=== PATIENT | male | born 1995 | race African-American/Black ===

== ENCOUNTER 2020-07-24 10:00 | Emergency (ER) | payer BC, SELFPAY ==
--- NOTE | ~2020-07-24 | XR_ITS ---
EXAMINATION: XR chest 1V portable DATE: 07/24/2020 11:26 INDICATION: Left flank pain. TECHNIQUE: A single frontal view of the chest was obtained. COMPARISON: None. FINDINGS: The chest demonstrates clear lungs without pneumonia, pleural effusion, or pneumothorax. Th e heart size is normal. IMPRESSION: 1. No acute cardiopulmonary disease. 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
--- NOTE | ~2020-07-24 | CT_ITS ---
EXAMINATION: CT abdomen pelvis wo con DATE: 07/24/2020 12:07 INDICATION: Left flank pain. TECHNIQUE: Computed tomography (CT) of the abdomen and pelvis was performed without intravenous contr ast. Automated exposure control and iterative reconstruction technique were employed. The dose-length product was 340.97 mGy-cm. COMPARISON: None. FINDINGS: The visualized portions of the lung bases are clear without pneumonia or pleural effusion. The heart size is normal. No pericardial effusion. The liver, gallbladder, spleen, pancreas, adrenal glands, and kidneys are normal. There is no urolithiasis. There are no dilated loops of bowel. The ap pendix is normal. There are no pathologically enlarged lymph nodes. There is no free intraperitoneal fluid. There is mild lumbar spondylosis. IMPRESSION: 1. No etiology for the patient's symptoms. 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
[2020-07-24 10:06] VITALS: BP 126/74; PULSE 88; RESP 16; TEMP 36.1; O2SAT 99
[2020-07-24 10:30] VITALS: PULSE 91
--- NOTE | 2020-07-24 10:40 | ED.GENADULT ---
HPI - General Adult General Chief complaint: Unspecified Stated complaint: Diabetic concerns, covid exposure Time Seen by Provider: 07/24/20 10:13 Source: patient Mode of arrival: ambulatory Limitations: no limitations History of Present Illness HPI narrative: This patient is a 25 year old male with history of DM 1 who presents for evaluation of possible COVID. He reports his mother tested positive for COVID 2 weeks ago and she has since tested negative. He has come to the ER for evaluation since he has diabetes. He states he has not had any symptoms . He does complain of an aching pain to his left flank that started 2 days ago. He is not sure if that is due to COVID. He does admit to not taking his insulin for 3 weeks , and he has not been checking his glucose either. His blood sugar was elevated today in triage. He denies nausea, vomiting, fever, cough, sob, polydipsia or polyuria. Related Data Home Medications Medication Instructions Recorded Confirmed insulin needles (disposable) 30 X #1 01/11/20 3/4 Allergies Allergy/AdvReac Type Severity Reaction Status Date / Time No Known Allergies Allergy Verified 07/24/20 10:10 Review of Systems Review of Systems: All systems reviewed & are unremarkable except as noted in HPI and below PMFSH Past Medical History Medical History (Updated 07/24/20 @ 12:43 by Sudha Antonio MD) Type 2 diabetes mellitus with hyperglycemia Family History Family History (Updated 01/09/18 @ 15:07 by DOCTOR UNKNOWN) Mother Patient's mother is in good health Father Patient's father is in good health Sibling Patient's sister is in good health Patient's brother is in good health Social History Social History (Updated 01/12/20 @ 11:25 by Annmarie Tinoco) Smoking status: Never smoker Second hand tobacco smoke exposure: No Alcohol intake: current Substance use: current Substance use type: marijuana Gender identity (if verbalized by the patient): Male Exam Narrative: Exam Narrative: GENERAL: Well-appearing, well-nourished, and in no acute distress. HEAD: Normocephalic, atraumatic EYES: PERRLA and EOMI, conjunctiva clear without discharge THROAT:Mucous membranes moist, Oropharynx normal without erythema, exudate, peritonsillar swelling or fluctuance NECK: Supple, without lymphadenopathy or mass RESPIRATORY: No respiratory distress, Airway patent, Respirations non-labored, Clear to auscultation without rales, rhonchi or wheeze HEART: Regular rate and rhythm. No murmur heard. Normal peripheral pulses. ABDOMEN: Soft, nontender, nondistended, normal active bowel sounds. No masses. No rebound or guarding, No organomegaly. EXTREMITIES: No edema, normal strength with full range of motion. SKIN: Warm, dry, normal color without rash NEURO: Alert and oriented x3. CN 2-12 grossly intact. No focal deficits. PSYCH: Normal mood and affect. Course Reevaluation(s) Reevaluation #1: I Discussed with patient that he needs to check his BS daily and take insulin. He states he just needs to call Dr. Main. I offered to prescribe. I discussed risk of not taking care of his diabetes Date: 07/24/20 Time: 12:38 Vital Signs Vital signs: Vital Signs Temperature 97 F L 07/24/20 10:06 Pulse Rate 88 07/24/20 10:06 Respiratory Rate 16 07/24/20 10:06 Blood Pressure 126/74 07/24/20 10:06 Pulse Oximetry 99 07/24/20 10:06 Temperature 97 F L 07/24/20 10:06 Pulse Rate 80 07/24/20 13:07 Respiratory Rate 15 07/24/20 13:07 Blood Pressure 122/76 07/24/20 13:07 Pulse Oximetry 99 07/24/20 13:07 Medical Decision Making Vital Signs Vital Signs: Vital Signs Temperature 97 F L 07/24/20 10:06 Pulse Rate 88 07/24/20 10:06 Respiratory Rate 16 07/24/20 10:06 Blood Pressure 126/74 07/24/20 10:06 Pulse Oximetry 99 07/24/20 10:06 Temperature 97 F L 07/24/20 10:06 Pulse Rate 80 07/24/20 13:07 Respiratory Rate
[2020-07-24 10:47] LABS: Add Urine Microscopic? YES; Appearance Urine Clear (Clear); Bilirubin Urine Negative (Negative); Blood Urine Negative (Negative); Color Urine Straw (Yellow); Glucose Urine UA 3+ mg/dL (Negative); Ketones Urine Trace mg/dL (Negative); Leukocyte Esterase Ur Trace LEU/UL (Negative); Nitrate Urine Negative (Negative); Protein Urine Negative (Negative); Squamous Epithelial Cell Urine Rare /hpf (Few); Urobilinogen Urine Negative mg/dL (<2.0)
[2020-07-24 10:51] LABS: Basophils Percent Auto 0.1 % (0.2-1.2); Eosinophils Absolute Auto 0.1 K/mm3 (0-0.3); Eosinophils Percent Auto 0.9 % (0-4.4); Hematocrit 47.5 % (42.0-52.0); Hemoglobin 16.5 g/dL (14.0-18.0); Immature Granulocyte Absolute 0.01 K/mm3 (0.00-0.031); Immature Granulocyte Percent A 0.1 % (0-0.5); Lymphocytes Absolute Auto 2.28 K/mm3 (0.9-3.2); Mean Corpuscular HGB Conc 34.7 g/dl (32-36); Mean Corpuscular Hemoglobin 29.4 pg (26-34); Mean Corpuscular Volume 84.5 fl (80-100); Mean Platelet Volume 10.8 fl (7.4-10.4); Monocytes Absolute Auto 0.4 K/mm3 (0.1-0.6); Monocytes Percent Auto 6.1 % (2.6-8.5); Neutrophils Absolute Auto 4.1 K/mm3 (1.3-6.7); Neutrophils Percent Auto 59.8 % (45.5-73.1); Platelet Count Result 263 k/mm3 (150-375); Red Blood Count 5.62 M/mm3 (4.6-6.20); Red Cell Distribution Width 11.8 % (11.5-14.5); White Blood Count 6.9 K/mm3 (4.5-10.0)
[2020-07-24 11:07] LABS: Alanine Aminotransferase 13 U/L (4-50); Albumin Level 4.1 g/dL (3.5-5.1); Alkaline Phosphatase 88 U/L (38-126); Anion Gap 8 mmol/L (8-16); Aspartate Amino Transferase 20 U/L (17-59); Blood Urea Nitrogen 12 mg/dL (9-20); Calcium 9.4 mg/dL (8.4-10.2); Carbon Dioxide 30 mmol/L (22-30); Chloride 97 mmol/L (98-107); Estimated CRCL calculation 169 ml/min; Estimated Glomerular Filt Rate > 60; Glucose 350 mg/dL (75-110); Lipase 72 U/L (23-300); Potassium 4.5 mmol/L (3.4-5.0); Sodium 135 mmol/L (137-145)
[2020-07-24 11:08] LABS: Glucose Point of Care 346 (65-105)
[2020-07-24] MEDS: SODIUM CHLORIDE 0.9% IV 1,000 ML 999 ML IV CONT (11:27)
[2020-07-24 11:29] VITALS: BP 122/56; PULSE 84; RESP 18; O2SAT 99
--- NOTE | 2020-07-24 11:57 | PC.NURSE ---
Pt to CT scan via stretcher.
[2020-07-24 13:07] VITALS: BP 122/76; PULSE 80; RESP 15; O2SAT 99
[2020-07-25 16:54] LABS: SARS-CoV-2 RNA PCR Positive
== END 2020-07-24 13:08 | disposition home or self-care (01) ==
PROVIDERS: Emergency Provider General Practice; PCP Family Medicine
DX: U07.1 COVID-19 (principal); E10.65 Type 1 diabetes mellitus with hyperglycemia; Z79.4 Long term (current) use of insulin
CPT/HCPCS: 36415; 71045; 74176; 80053; 81001; 82948; 83690; 85025; 87086; 87491; 87591; 87635; 99284; C9803; J7030; U0003

== ENCOUNTER 2023-11-08 07:05 | Emergency (ER) | payer OTHER, SELFPAY ==
[2023-11-08] VITALS (8 sets, daily range): BP systolic 80–129; BP diastolic 56–96; PULSE 97–124; RESP 15–20; TEMP 36.4; O2SAT 100
--- NOTE | 2023-11-08 07:29 | ECG_ITS ---
Measurements Intervals [place] Rate: 111 P: 62 NC: 145 QRS: 36 QRSD: 93 T: 63 QT: 322 QTc: 439 Interpretive Statements SINUS TACHYCARDIA LOW-VOLTAGE QRS POOR R-WAVE PROGRESSION BORDERLINE ECG ABNORMAL RHYTHM ECG NO PREVIOUS ECG AVAILABLE FOR COMPARISON Electronically Signed On 11-08-2023 7:50:56 CDT by Lyle Wynn M.D.
[2023-11-08 07:34] LABS: Glucose Point of Care 204 mg/dl (65-105)
[2023-11-08] MEDS: SODIUM CHLORIDE 0.9% IV 1,000 ML 999 ML IV CONT ×2 (08:20→09:40)
--- NOTE | 2023-11-08 08:20 | ED.GENADULT ---
HPI - General Adult General Chief complaint: Dizziness Stated complaint: dizzy Time Seen by Provider: 11/08/23 07:27 History of Present Illness HPI narrative: 28-year-old male presents emergency department for evaluation dizziness and lightheadedness. Patient states that he took his amlodipine and Lantus this morning. patient states he does not use to take these medications together. While patient was at work he had multiple episodes of lightheaded and dizziness. While at rest patient denies any complaints. Patient denies any associated chest pain or shortness of breath patient does have a history of type 2 diabetes and has history of 200 lb of weight loss. Related Data Home Medications Medication Instructions Recorded Confirmed insulin needles (disposable) 30 X ##1 01/11/20 3/4 Allergies Allergy/AdvReac Type Severity Reaction Status Date / Time No Known Allergies Allergy Verified 11/08/23 07:14 Review of Systems Review of Systems: All systems reviewed & are unremarkable except as noted in HPI and below PMFSH Past Medical History Medical History (Updated 11/08/23 @ 12:11 by Dhruv Ramirez MD) Type 2 diabetes mellitus with hyperglycemia Family History Family History (Updated 01/09/18 @ 15:07 by DOCTOR UNKNOWN) Mother Patient's mother is in good health Father Patient's father is in good health Sibling Patient's sister is in good health Patient's brother is in good health Social History Social History (Updated 01/12/20 @ 11:25 by Annmarie Tinoco) Smoking status: Never smoker Second hand tobacco smoke exposure: No Alcohol intake: current Alcohol use details: rare Substance use: current Substance use type: marijuana Living arrangements: with family Occupation/Education: unemployed Gender identity (if verbalized by the patient): Male Exam Narrative: APPEARANCE: Well appearing, no pain, no distress, well-nourished. HEAD: normocephalic, atraumatic. EYES: PERRLA/EOMI, conjunctivae clear. NOSE: Normal no drainage EARS:TMS clear with good light reflex. THROAT: Pharynx clear, no exudate. NECK: Supple. No adenopathy, no masses. RESPIRATORY: Airway patent, respirations nonlabored. Clear to auscultation bilaterally, no rales, rhonchi, wheezing. CARDIOVASCULAR: Regular rate and rhythm without murmurs rubs or gallops. ABDOMINAL: Soft, nontender, nondistended, normal bowel sounds MUSCULOSKELETAL: Moves all extremities. Strength/ROM intact, No edema, No calf tenderness. NEURO: Alert. Cranial nerves II through XII intact. Good gait. Good coordination SKIN: Warm, dry. Normal Color Course Course Emergency Course: patient was discharged to home with close outpatient follow-up Vital Signs Vital signs: Vital Signs Temperature 97.6 F 11/08/23 07:11 Pulse Rate 124 H 11/08/23 07:11 Respiratory Rate 18 11/08/23 07:11 Blood Pressure 97/56 L 11/08/23 07:11 Pulse Oximetry 100 11/08/23 07:11 Oxygen Delivery Room Air 11/08/23 07:11 Temperature 97.6 F 11/08/23 07:11 Pulse Rate 115 H 11/08/23 12:13 Respiratory Rate 20 11/08/23 10:49 Blood Pressure 128/96 H 11/08/23 12:13 Pulse Oximetry 100 11/08/23 10:49 Oxygen Delivery Room Air 11/08/23 07:11 Medical Decision Making [facility] Narrative Medical decision making narrative: 28-year-old male present to the emergency department for evaluation of lightheaded dizziness. Patient to was still orthostatic after a L and half of fluids. Patient did report he felt improved. Patient was afebrile with no leukocytosis and a stable hemoglobin of 14.3, no acute abnormalities on the patient's CMP, patient's blood sugar did not drop and is 144. No evidence of influenza RSV or COVID. Due to the patient's still being symptomatic and orthostatic after to L 1/3 L is being given. Patient was still orthostatic after the 3 L of fluid but patient was able to ambulate in the emergency department stearns
[2023-11-08 08:57] LABS: Alanine Aminotransferase 13 U/L (6-50); Albumin Level 4.2 g/dL (3.5-5.1); Alkaline Phosphatase 70 U/L (38-126); Anion Gap 5 mmol/L (4-12); Aspartate Amino Transferase 20 U/L (17-59); Blood Urea Nitrogen 18 mg/dL (9-20); Calcium 9.5 mg/dL (8.4-10.2); Carbon Dioxide 32 mmol/L (22-30); Chloride 101 mmol/L (98-107); Estimated CRCL calculation 99 ml/min; Estimated Glomerular Filt Rate > 60; Glucose 144 mg/dL (65-110); Lipase 42 U/L (23-300); Potassium 4.1 mmol/L (3.4-5.0); Sodium 138 mmol/L (137-145)
[2023-11-08 09:12] LABS: Basophils Percent Auto 0.2 % (0.2-1.2); Eosinophils Percent Auto 0.5 % (0-4.4); Hematocrit 42.7 % (42.0-52.0); Hemoglobin 14.3 g/dL (14.0-18.0); Immature Granulocyte Absolute 0.02 K/mm3 (0.00-0.031); Immature Granulocyte Percent A 0.3 % (0-0.5); Lymphocytes Absolute Auto 1.44 K/mm3 (0.9-3.2); Lymphocytes Percent Auto 23.2 % (18.3-44.2); Mean Corpuscular HGB Conc 33.5 g/dl (32-36); Mean Corpuscular Hemoglobin 28.9 pg (26-34); Mean Corpuscular Volume 86.4 fl (80-100); Monocytes Absolute Auto 0.4 K/mm3 (0.1-0.6); Monocytes Percent Auto 6.8 % (2.6-8.5); Neutrophils Absolute Auto 4.3 K/mm3 (1.3-6.7); Platelet Count Result 312 k/mm3 (150-375); Red Blood Count 4.94 M/mm3 (4.6-6.20); Red Cell Distribution Width 12.2 % (11.5-14.5); White Blood Count 6.2 K/mm3 (4.5-10.0)
[2023-11-08 09:20] LABS: Influenza A QL RT-PCR Negative (Negative); Influenza B QL RT-PCR Negative (Negative); RSV RNA, RT-PCR Negative (Negative); SARS-CoV-2 RNA PCR Negative (Negative)
[2023-11-08 10:10] LABS: Glucose Point of Care 158 mg/dl (65-105)
== END 2023-11-08 12:19 | disposition home or self-care (01) ==
PROVIDERS: Emergency Provider Emergency Medicine; PCP Internal Medicine Interventional Cardiology
DX: I95.1 Orthostatic hypotension (principal); E11.9 Type 2 diabetes mellitus without complications; Z79.4 Long term (current) use of insulin; Z20.822 Contact with and (suspected) exposure to COVID-19
CPT/HCPCS: 36415; 80053; 82948; 83605; 83690; 85025; 87637; 93005; 96360; 96361; 99284; J7030

== ENCOUNTER 2024-01-07 15:51 | Emergency (ER) | payer OTHER, SELFPAY ==
[2024-01-07 15:59] VITALS: BP 93/59; PULSE 115; RESP 15; TEMP 36.4; O2SAT 100
--- NOTE | 2024-01-07 16:09 | ECG_ITS ---
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 Measurements Intervals [place] Rate: 104 P: 77 SD: 135 QRS: 70 QRSD: 102 T: 74 QT: 322 QTc: 425 Interpretive Statements SINUS TACHYCARDIA No previous ECG available for comparison Electronically Signed On 01-08-2024 13:50:33 CDT by Geoffrey Morrison M.D.
[2024-01-07 16:15] VITALS: BP 118/75; BP 93/61; PULSE 109
[2024-01-07 16:16] VITALS: BP 93/81; PULSE 119
[2024-01-07 16:26] VITALS: BP 93/81; PULSE 104; RESP 19; O2SAT 99
[2024-01-07 16:27] LABS: Glucose Point of Care 263 mg/dl (65-105)
[2024-01-07 16:37] LABS: Eosinophils Percent Auto 0.8 % (0-4.4); Hemoglobin 13.3 g/dL (14.0-18.0); Immature Granulocyte Absolute 0.01 K/mm3 (0.00-0.031); Immature Granulocyte Percent A 0.2 % (0-0.5); Lymphocytes Absolute Auto 1.11 K/mm3 (0.9-3.2); Lymphocytes Percent Auto 21.6 % (18.3-44.2); Mean Corpuscular HGB Conc 33.3 g/dl (32-36); Mean Corpuscular Hemoglobin 28.7 pg (26-34); Mean Corpuscular Volume 86.4 fl (80-100); Monocytes Absolute Auto 0.4 K/mm3 (0.1-0.6); Neutrophils Absolute Auto 3.6 K/mm3 (1.3-6.7); Neutrophils Percent Auto 69.4 % (45.5-73.1); Platelet Count Result 266 k/mm3 (150-375); Red Blood Count 4.63 M/mm3 (4.6-6.20); White Blood Count 5.1 K/mm3 (4.5-10.0)
--- NOTE | 2024-01-07 16:50 | ED.DIZZY ---
HPI - Dizziness General Chief Complaint: Dizziness Stated Complaint: dizziness, vomiting Time Seen by Provider: 01/07/24 16:40 Source: patient Mode of arrival: ambulatory Limitations: no limitations History of Present Illness HPI Narrative: Morro is a 28-year-old male patient presenting to the emergency room today with complaints of dizziness, nausea, and vomiting. Reports that this occurred prior to coming into the emergency room today. 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 He is diabetic. He takes Lantus daily. Blood sugar was 263 at the time of arrival. States he is dizzy more when up walking around and feels unsteady on his feet. Initial blood pressure is 93/59 with heart rate of 115. He denies any URI symptoms. Related Data Home Medications Medication Instructions Recorded Confirmed insulin needles (disposable) 30 X ##1 01/11/20 3/4 Allergies Allergy/AdvReac Type Severity Reaction Status Date / Time No Known Allergies Allergy Verified 11/08/23 07:14 Review of Systems Review of Systems: Pertinent positives per HPI. Patient denies any fever, chills, rash, headache, visual changes, cough, runny nose, sore throat, shortness of breath, chest pain, palpitations, nausea, vomiting, diarrhea, constipation, abdominal pain, or any urinary issues. [facility] Past Medical History Medical History Type 2 diabetes mellitus with hyperglycemia Family History Family History Mother Patient's mother is in good health Father Patient's father is in good health Sibling Patient's sister is in good health Patient's brother is in good health Social History Social History Smoking status: Never smoker Second hand tobacco smoke exposure: No Alcohol intake: current Alcohol use details: rare Substance use: current Substance use type: marijuana Living arrangements: with family Occupation/Education: unemployed Gender identity (if verbalized by the patient): Male Comments At the time of my signature, I reviewed and agree with the nursing past medical, surgical, social, and family history. There is no relevant family history pertinent to the patient complaint. Exam Narrative: General: Well-developed, well nourished, in no apparent distress Head: Normocephalic, atraumatic Eyes: Pupils equally round and reactive to light bilaterally, EOM intact, sclera and conjunctive clear, no discharge, lids normal Ears: TMs intact and clear, ear canals clear, no drainage, grossly hearing normal. Nose: Nares patent, no discharge, no inflammation, no sinus tenderness. Mouth: Oropharynx without lesions or masses, good dentition, MM dry. Tongue midline, even rise and fall of uvula Neck: Supple, trachea midline, no enlargement of anterior or posterior cervical nodes, no thyroid masses or goiter palpable. Cardio: Regular rate and rhythm, s1 and s2 normal, no murmur appreciated. Resp: Clear to auscultation bilaterally anteriorly and posteriorly, no rhonchi, rales, wheezing or rubs Musculoskeletal: No deformity, non-tender to palpation, grossly normal range of motion, muscle strength strong and equal, peripheral pulse strong, no edema, no cyanosis, normal gait and station Neuro: Alert and oriented x4 with normal speech, no focal deficits, cranial nerves I through XII intact, muscle strength 5 out of 5, sensation intact bilaterally, negative Romberg test Course Course Emergency Course: Portions of this record may have been created with voice recognition software. Vital Signs Vital signs: Vital Signs Temperature 36.4 C 01/07/24 15:59 Pulse Rate 115 H 01/07/24 15:59 Respiratory Rate 15 01/07/24 15:59 Blood Pressure 93/59 L 01/07/24 15:59 Puls
[2024-01-07 17:02] LABS: Alanine Aminotransferase 11 U/L (6-50); Albumin Level 4.1 g/dL (3.5-5.1); Alkaline Phosphatase 65 U/L (38-126); Anion Gap 10 mmol/L (4-12); Aspartate Amino Transferase 20 U/L (17-59); Blood Urea Nitrogen 22 mg/dL (9-20); Calcium 9.2 mg/dL (8.4-10.2); Carbon Dioxide 23 mmol/L (22-30); Chloride 101 mmol/L (98-107); Estimated CRCL calculation 130 ml/min; Estimated Glomerular Filt Rate > 60; Glucose 280 mg/dL (65-110); Potassium 3.9 mmol/L (3.4-5.0); Sodium 134 mmol/L (137-145)
[2024-01-07] MEDS: SODIUM CHLORIDE 0.9% IV 1,000 ML 999 ML IV CONT ×2 (17:18→17:19)
[2024-01-07 18:07] VITALS: BP 121/80; PULSE 91; RESP 16; O2SAT 99
[2024-01-07 18:58] LABS: Appearance Urine Cloudy (Clear); Bacteria Urine None Seen /hpf; Bilirubin Urine Negative (Negative); Blood Urine Negative (Negative); Budding Yeast Urine Present /hpf; Color Urine Yellow (Yellow); Glucose Urine UA 3+ mg/dL (Negative); Ketones Urine Negative (Negative); Leukocyte Esterase Ur 1+ LEU/UL (Negative); Need Manual Microscopic Reviewed; Nitrate Urine Negative (Negative); Protein Urine Negative (Negative); RBC Urine 0-2 /hpf (0-2); Specific Grav Ur 1.017 (1.001-1.035); Squamous Epithelial Cell Urine Occasional /hpf (Few); Urobilinogen Urine 0.2 mg/dL (<2.0); pH Urine 6.5 (5.0-9.0)
[2024-01-07 19:00] LABS: Add Urine Microscopic? YES
[2024-01-07 19:06] LABS: Glucose Point of Care 215 mg/dl (65-105)
[2024-01-07 19:46] VITALS: BP 144/84; PULSE 79; RESP 20; O2SAT 99
[2024-01-07 20:02] LABS: Glucose Point of Care 199 mg/dl (65-105)
== END 2024-01-07 19:48 | disposition home or self-care (01) ==
PROVIDERS: Student in an Organized Health Care Education/Training Program; Emergency Provider Nurse Practitioner Family; PCP Internal Medicine Interventional Cardiology
DX: E11.65 Type 2 diabetes mellitus with hyperglycemia (principal); D64.9 Anemia, unspecified; E86.0 Dehydration; R42 Dizziness and giddiness; Z79.4 Long term (current) use of insulin
CPT/HCPCS: 36415; 80053; 81001; 82948; 85025; 87086; 93005; 96360; 96361; 99284; J7030

== ENCOUNTER 2024-01-11 14:02 | Emergency (ER) | payer OTHER, SELFPAY ==
--- NOTE | ~2024-01-11 | CT_ITS ---
EXAMINATION: CT abdomen pelvis w con DATE: 01/11/2024 15:24 INDICATION: Lower abdominal pain. Nausea and vomiting. TECHNIQUE: Computed tomography (CT) of the abdomen and pelvis was performed with 100 cc Omnipaque 350 intravenous contrast. The dose-length product was 646.41 mGy-cm. Automated exposure control and iter ative reconstruction technique were employed. COMPARISON: CT dated 07/24/2020. FINDINGS: Lung bases unremarkable. Heart size normal. No significant pleural or pericardial effusion. The liver, spleen, pancreas, adrenal glands and kidneys are unremarkable. No hydronephrosis. Gallbla dder is present. Nonobstructive bowel gas pattern. Trace free fluid in the pelvis, nonspecific. No si gnificant vascular abnormality. No lymphadenopathy. No free air. IMPRESSION: 1. Trace free fluid in the pelvis, nonspecific. Reviewed, dictated and finalized at location B.
[2024-01-11 14:28] VITALS: BP 129/77; PULSE 105; RESP 17; TEMP 36.4; O2SAT 100
--- NOTE | 2024-01-11 14:30 | ED.NAVMDI ---
HPI - Nausea/Vomiting/Diarrhea General Chief complaint: Nausea/Vomiting/Diarrhea Stated complaint: N/V/D Time Seen by Provider: 01/11/24 14:09 Source: patient Mode of arrival: ambulatory Limitations: no limitations History of Present Illness HPI Narrative: Patient is a 28-year-old male, with PMH of DM, who presents the ED with report of nausea, vomiting, diarrhea. Patient reports he has been sick for the last several days. States he initially developed nausea and vomiting. States this has improved, but he has not developed diarrhea. He notes he was up all night having diarrhea. States it looks almost mucus-like. Denies rectal bleeding or melena. Reports pain throughout his lower abdomen. Denies fevers, sick contacts, bad food exposure, cough or cold symptoms. Related Data Home Medications Medication Instructions Recorded Confirmed insulin needles (disposable) 30 X ##1 01/11/20 3/4 Allergies Allergy/AdvReac Type Severity Reaction Status Date / Time No Known Allergies Allergy Verified 11/08/23 07:14 Review of Systems Review of Systems: CONSTITUTIONAL: Denies fever, chills, or sweats. ENT: Denies rhinorrhea, congestion, sore throat. CARDIOVASCULAR: Denies chest pain. RESPIRATORY: Denies cough or dyspnea. GASTROINTESTINAL: See HPI. GENITOURINARY: Denies dysuria or hematuria. All systems reviewed & are unremarkable except as noted in HPI and below PMFSH Past Medical History Medical History Type 2 diabetes mellitus with hyperglycemia Family History Family History Mother Patient's mother is in good health Father Patient's father is in good health Sibling Patient's sister is in good health Patient's brother is in good health Social History Social History Smoking status: Never smoker Second hand tobacco smoke exposure: No Alcohol intake: current Alcohol use details: rare Substance use: current Substance use type: marijuana Living arrangements: with family Occupation/Education: unemployed Gender identity (if verbalized by the patient): Male Exam Narrative: GENERAL: Well appearing, well-nourished, non-toxic, in no acute distress. HEAD: Normocephalic, atraumatic. RESPIRATORY: Airway patent, respirations nonlabored. Clear to auscultation bilaterally, no rales, rhonchi, wheezing. CARDIOVASCULAR: Regular rate and rhythm without murmurs, rubs, or gallops. ABDOMINAL: Soft, mild tenderness in epigastric region and minimally throughout lower abdomen, no rebound, nondistended. Normoactive BS. MUSCULOSKELETAL: Moves all extremities. No gross deformities. SKIN: Warm, dry, normal color. NEURO: A&O X3. Speech clear. PSYCHIATRIC: Appropriate mood and affect. Normal interaction. Course Vital Signs Vital signs: Vital Signs Temperature 97.6 F 01/11/24 14:28 Pulse Rate 105 H 01/11/24 14:28 Respiratory Rate 17 01/11/24 14:28 Blood Pressure 129/77 01/11/24 14:28 Pulse Oximetry 100 01/11/24 14:28 Oxygen Delivery Room Air 01/11/24 14:28 Temperature 97.6 F 01/11/24 14:28 Pulse Rate 100 01/11/24 16:59 Respiratory Rate 17 01/11/24 16:59 Blood Pressure 122/74 01/11/24 16:59 Pulse Oximetry 99 01/11/24 16:59 Oxygen Delivery Room Air 01/11/24 14:28 MDM - Nausea/Vomiting/Diarrhea MDM Narrative Medical decision making narrative: Patient presented to ED with several day history of nausea, vomiting, diarrhea. Vital signs are stable upon arrival. Patient in no acute distress. Basic laboratory studies w/o leukocytosis or anemia, stable electrolytes. Blood glucose mildly elevated. No anion gap. Normal bicarb. No evidence of DKA. patient reports he only once today and did not administer his normal home insulin. Magnesium borderline at 1.6, IV replacement orde
[2024-01-11 14:40] LABS: Basophils Percent Auto 0.2 % (0.2-1.2); Eosinophils Absolute Auto 0.1 K/mm3 (0-0.3); Eosinophils Percent Auto 1.3 % (0-4.4); Hematocrit 38.4 % (42.0-52.0); Hemoglobin 13.3 g/dL (14.0-18.0); Immature Granulocyte Absolute 0.01 K/mm3 (0.00-0.031); Immature Granulocyte Percent A 0.2 % (0-0.5); Lymphocytes Absolute Auto 1.59 K/mm3 (0.9-3.2); Lymphocytes Percent Auto 26.7 % (18.3-44.2); Mean Corpuscular HGB Conc 34.6 g/dl (32-36); Mean Corpuscular Hemoglobin 29.4 pg (26-34); Mean Corpuscular Volume 84.8 fl (80-100); Mean Platelet Volume 9.8 fl (7.4-10.4); Monocytes Absolute Auto 0.5 K/mm3 (0.1-0.6); Monocytes Percent Auto 7.9 % (2.6-8.5); Neutrophils Absolute Auto 3.8 K/mm3 (1.3-6.7); Neutrophils Percent Auto 63.7 % (45.5-73.1); Platelet Count Result 287 k/mm3 (150-375); Red Blood Count 4.53 M/mm3 (4.6-6.20)
[2024-01-11 14:42] LABS: Appearance Urine Clear (Clear); Bilirubin Urine Negative (Negative); Blood Urine Negative (Negative); Color Urine Yellow (Yellow); Glucose Urine UA 3+ mg/dL (Negative); Ketones Urine Negative (Negative); Leukocyte Esterase Ur Negative LEU/UL (Negative); Nitrate Urine Negative (Negative); Protein Urine Negative (Negative); Urobilinogen Urine 0.2 mg/dL (<2.0)
[2024-01-11] MEDS: SODIUM CHLORIDE 0.9% IV 1,000 ML 999 ML IV CONT ×2 (14:46→14:47)
[2024-01-11 14:47] LABS: Add Urine Microscopic? NO; Specific Grav Ur 1.034 (1.001-1.035)
[2024-01-11] MEDS: DICYCLOMINE HCL 10 MG CAPSULE 20 MG PO (14:47)
[2024-01-11] MEDS: FAMOTIDINE 20 MG/2 ML VIAL IV PUSH (14:47)
[2024-01-11 14:55] LABS: Alanine Aminotransferase 9 U/L (6-50); Albumin Level 3.9 g/dL (3.5-5.1); Alkaline Phosphatase 66 U/L (38-126); Anion Gap 6 mmol/L (4-12); Aspartate Amino Transferase 13 U/L (17-59); Bilirubin,Total 0.8 mg/dL (0.2-1.3); Blood Urea Nitrogen 14 mg/dL (9-20); Calcium 9.1 mg/dL (8.4-10.2); Carbon Dioxide 27 mmol/L (22-30); Chloride 103 mmol/L (98-107); Estimated CRCL calculation 146 ml/min; Estimated Glomerular Filt Rate > 60; Glucose 231 mg/dL (65-110); Lipase 43 U/L (23-300); Magnesium 1.6 mg/dL (1.6-2.3); Sodium 136 mmol/L (137-145)
[2024-01-11] MEDS: MAGNESIUM SULF 2 GM/WATER 50ML 2 GM/50 ML BAG IVPB (15:37)
[2024-01-11 16:59] VITALS: BP 122/74; PULSE 100; RESP 17; O2SAT 99
== END 2024-01-11 17:01 | disposition home or self-care (01) ==
PROVIDERS: Emergency Provider Physician Assistant; PCP Internal Medicine Interventional Cardiology
DX: K52.9 Noninfective gastroenteritis and colitis, unspecified (principal); E11.9 Type 2 diabetes mellitus without complications; Z79.4 Long term (current) use of insulin
CPT/HCPCS: 36415; 74177; 80053; 81003; 83690; 83735; 85025; 96361; 96365; 96375; 99284; A9270; J3475; J7030; Q9967